=== PATIENT | female | born 1975 | race Caucasian/White ===

== ENCOUNTER 2018-04-03 05:39 | Day surgery (SDC) | payer OTHER ==
[2018-04-02 15:25] LABS: BASOPHILS # (AUTO) 0.03 x10^3/uL (0-0.1); BASOPHILS % (AUTO) 0 % (0-1); EOSINOPHILS # (AUTO) 0.07 x10^3/uL (0-0.4); EOSINOPHILS % (AUTO) 1 % (1-7); LYMPHOCYTES # (AUTO) 1.72 x10^3/uL (1-3.4); LYMPHOCYTES % (AUTO) 26 % (22-44); MD NO; MEAN CORPUSCULAR HGB CONC 34.1 g/dL (32.4-35.8); MEAN CORPUSCULAR VOLUME 91.1 fL (80-100); MEAN PLATELET VOLUME 7.8 fL (7.4-10.4); MONOCYTES # (AUTO) 0.61 x10^3/uL (0.2-0.8); MONOCYTES % (AUTO) 9 % (2-9); NEUTROPHILS # (AUTO) 4.32 x10^3/uL (1.8-6.8); NEUTROPHILS % (AUTO) 64 % (42-75); PLATELET COUNT 309 x10^3/uL (130-400); RED BLOOD COUNT 4.23 x10^6/uL (3.82-5.3); RED CELL DISTRIBUTION WIDTH 15.3 % (9.6-15.2)
[2018-04-02 15:39] LABS: ALANINE AMINOTRANSFERASE 26 U/L (12-78); ALBUMIN 3.9 g/dL (3.4-5.0); ANION GAP 7 mmol/L (5-15); CALCIUM 8.8 mg/dL (8.5-10.1); CHLORIDE 104 mmol/L (98-107)
[2018-04-02 15:41] LABS: MICROSCOPIC NOT IND
[2018-04-02 15:44] LABS: ALKALINE PHOSPHATASE 61 U/L (45-117); BILIRUBIN,TOTAL 0.5 mg/dL (0.2-1.0); CREATININE 0.61 mg/dL (0.55-1.02); TOTAL PROTEIN 7.4 g/dL (6.4-8.2)
[2018-04-02 15:46] LABS: CULTURE INDICATED? NO
[~2018-04-03] VITALS: Ht 168.9 cm; Wt 77.1 kg
[~2018-04-03 05:39] MED LIST: BIOT1TAB12 PO; THYR120T PO; [UNRECOGNIZED DRUG - OTHER] PO; [UNRECOGNIZED DRUG - OTHER] PO
[2018-04-03 06:12] VITALS: BP 123/86
[2018-04-03] MEDS ORDERED: LACTATED RINGERS 1,000 ML IV SCH (06:12)
[2018-04-03] MEDS ORDERED: FLUORESCEIN SODIUM 500 MG/5 ML ONE (07:03)
[2018-04-03] MEDS ORDERED: BUPIVACAINE/PF-EPI 0.25% 1:200K ONE ×2 (07:03→07:48)
[2018-04-03] MEDS ORDERED: MIDAZOLAM 1 MG/ML, 2ML ONE (07:13)
[2018-04-03] MEDS ORDERED: FENTANYL PF 250 MCG/5ML ONE (07:14)
[2018-04-03] MEDS ORDERED: GABAPENTIN 300 MG CAPSULE ONE (07:21)
[2018-04-03] MEDS ORDERED: SCOPOLAMINE PATCH, 1.5MG PATCH.TD72 TD ONE (07:21)
[2018-04-03] MEDS ORDERED: ACETAMINOPHEN 500 MG TABLET ONE (07:21)
[2018-04-03] MEDS ORDERED: PROPOFOL 10 MG/ML, 20ML ONE (07:28)
[2018-04-03] MEDS ORDERED: DEXAMETHASONE 4 MG/ML, 1ML ONE (07:28)
[2018-04-03] MEDS ORDERED: ROCURONIUM 10 MG/ML,10ML ONE (07:28)
[2018-04-03] MEDS ORDERED: CEFAZOLIN 1,000 MG ONE (07:28)
[2018-04-03] MEDS ORDERED: ONDANSETRON 2MG/ML, 2ML ONE (07:28)
[2018-04-03] MEDS ORDERED: ALBUTEROL SULFATE 2.5 MG/3 ML NPPB PRN (07:30)
[2018-04-03] MEDS ORDERED: ONDANSETRON ODT 8 MG PO PRN (07:30)
[2018-04-03] MEDS ORDERED: MEPERIDINE/PF 25MG/0.5ML IVPush PRN (07:30)
[2018-04-03] MEDS ORDERED: LORazepam 2 MG/ML, 1ML IVPush PRN (07:30)
[2018-04-03] MEDS ORDERED: PROMETHAZINE 25 MG/ML, 1ML IV PRN (07:30)
[2018-04-03] MEDS ORDERED: HYDROmorphone 1 MG/ML, 1ML IV PRN (07:30)
[2018-04-03] MEDS ORDERED: MEPERIDINE/PF 50 MG/ML ONE (09:36)
[2018-04-03] MEDS ORDERED: KETOROLAC 30 MG/1 ML IVPush STA (10:02)
[2018-04-03] MEDS ORDERED: FENTANYL PF 100 MCG/2ML ONE (10:02)
[2018-04-03] MEDS ORDERED: OXYcodone 5 MG/5 ML ORAL.SOL UDC ONE (10:02)
[2018-04-03] MEDS ORDERED: KETOROLAC 30 MG/1 ML ONE (10:02)
[2018-04-03] MEDS: OXYcodone 5 MG/5 ML ORAL.SOL UDC PO PRN ×2 (10:05→15:10)
[2018-04-03] MEDS: FENTANYL PF 100 MCG/2ML IV PRN ×2 (10:08→10:21)
[2018-04-03] MEDS ORDERED: KETOROLAC 30 MG/1 ML IVPush ONE (10:30)
[2018-04-03] MEDS ORDERED: OXYcodone/APAP 5/325MG TABLET PO PRN (15:30)
== END 2018-04-03 16:15 | disposition home or self-care (01) ==
LOC: OUT 05:39
PROVIDERS: ATTEND Obstetrics & Gynecology
DX: N92.0 Excessive and frequent menstruation with regular cycle (principal); N84.0 Polyp of corpus uteri; N80.0 Endometriosis of uterus; N72 Inflammatory disease of cervix uteri; D25.9 Leiomyoma of uterus, unspecified; Z88.1 Allergy status to other antibiotic agents; Z98.890 Other specified postprocedural states
CPT/HCPCS: 36415; 58552; 80053; 81003; 84702; 85025; 86850; 86900; 88307; J0690; J1100; J1885; J2175; J2250; J2405; J2704; J3010; J7120